=== PATIENT | female | born 1970 | race Caucasian/White ===

== ENCOUNTER 2020-04-20 08:27 | Emergency (ER) | payer SELFPAY ==
[~2020-04-20] VITALS: Ht 154.9 cm; Wt 90.7 kg
[~2020-04-20 08:27] MED LIST: CYCL10 PO; PRED20 PO; TRAM50 PO
[2020-04-20] MEDS ORDERED: Ultram50 MG PO (10:22)
[2020-04-20] MEDS ORDERED: LIDO700A20 TOP (10:22)
[2020-04-20] MEDS ORDERED: VOLTAREN ARTHRI20 GM TOP (10:22)
== END 2020-04-20 10:32 | disposition home or self-care (01) ==
LOC: ER 08:27
DX: G89.29 Other chronic pain (principal); M54.5 Low back pain; Z87.442 Personal history of urinary calculi
CPT/HCPCS: 96372; 99283-25; J1885

== ENCOUNTER 2022-03-06 12:37 | Day surgery (SDC) | payer OTHER ==
[~2022-03-06] VITALS: Ht 157.5 cm; Wt 85.1 kg
[~2022-03-06 12:37] MED LIST changes: +ATOR20 PO; +Amitriptyline H10 MG PO; +DULO30 PO; +LIDO700A20 TOP; +METF500; +Ultram50 MG PO; +VOLTAREN ARTHRI20 GM TOP
--- NOTE | 2022-03-06 14:11 | NUR ---
03/06/22 1411 Quin Castillo PT HAD 9 IV ATTEMPTS ON THE RIGHT FOREARM AND RIGHT HAND. PT TOLERATED THE IV ATTEMPTS WELL. PT STATED UNDERSTANDING AND WAS PLEASANT ABOUT THE IV ATTEMPTS.
--- NOTE | 2022-03-06 14:48 | NUR ---
03/06/22 1448 Vernell Recio MAX, SPIDER, WEDGE, FOAM HOUSEHOLD COORDINATOR, SIDE POSITIONERS, GELX3, SEAT BELT X2, RIGHT ARM SECURED IN GEL PADDED ARM MEYER. POSITION VERIFIED BY SURGON AND ANESTHESIA.
--- NOTE | 2022-03-06 16:02 | NUR ---
03/06/22 1602 Kerri Downing PT MOM AT CHAIR SIDE WITH PT.
== END 2022-03-06 16:31 | disposition home or self-care (01) ==
LOC: ORSCSDS 12:37
PROVIDERS: Orthopaedic Surgery
PROC: 0LS44ZZ Reposition Left Upper Arm Tendon, Percutaneous Endoscopic Approach (ICD-10-PCS; principal; 2022-03-06 14:30)
PROC: 0RNK4ZZ Release Left Shoulder Joint, Percutaneous Endoscopic Approach (ICD-10-PCS; principal; 2022-03-06 14:30)
PROC: 0LQ24ZZ Repair Left Shoulder Tendon, Percutaneous Endoscopic Approach (ICD-10-PCS; principal; 2022-03-06 14:30)
DX: M75.112 Incomplete rotator cuff tear or rupture of left shoulder, not specified as traumatic (principal); M75.22 Bicipital tendinitis, left shoulder; M75.42 Impingement syndrome of left shoulder; E11.9 Type 2 diabetes mellitus without complications; E78.5 Hyperlipidemia, unspecified; F41.8 Other specified anxiety disorders; Z79.84 Long term (current) use of oral hypoglycemic drugs; Z79.899 Other long term (current) drug therapy; E66.9 Obesity, unspecified; Z68.34 Body mass index [BMI] 34.0-34.9, adult
CPT/HCPCS: 82947; A9270; C1713; J0171; J1100; J2250; J2370; J2405; J2704; J3010; J7120

== ENCOUNTER → 2023-09-10 | Outpatient (CLI) | payer OTHER | LOC: LAB SHORT 19:24 → LAB 19:24 | DX: M35.3 Polymyalgia rheumatica (principal); L29.2 Pruritus vulvae | CPT/HCPCS: 85651; 86140 ==

== ENCOUNTER → 2023-09-17 | Outpatient (CLI) | payer OTHER ==
[2023-09-17 19:44] LABS: Bacterial Vaginosis PCR Negative (NEGATIVE); Candida Group, PCR NOT DETECTED (NOT DETECT)
[2023-09-17 19:45] LABS: Candida glabrata-krusei, PCR DETECTED (NOT DETECT)
== END | disposition home or self-care (01) ==
LOC: LAB SHORT 10:00
PROVIDERS: Family Medicine
DX: L29.2 Pruritus vulvae (principal)
CPT/HCPCS: 87481; 87661; 87801

== ENCOUNTER → 2024-05-13 | Outpatient (CLI) | payer OTHER ==
[2024-05-13 14:14] LABS: BASOPHILS ABSOLUTE AUTO 0.03 K/mm3 (0.00-0.23); BASOPHILS PERCENT AUTO 0 % (0-2); EOSINOPHILS ABSOLUTE AUTO 0.17 K/mm3 (0.00-0.68); EOSINOPHILS PERCENT AUTO 2 % (0-6); Hematocrit 44.4 % (33.0-51.0); Hemoglobin 15.2 g/dL (11.5-16.0); IMMATURE GRAN ABSOLUTE AUTO 0.02 K/mm3 (0.00-0.10); IMMATURE GRAN PERCENT AUTO 0 % (0-1); LYMPHOCYTES PERCENT AUTO 31 % (21-46); MONOCYTES ABSOLUTE AUTO 0.53 K/mm3 (0.16-1.47); MONOCYTES PERCENT AUTO 6 % (4-13); Mean Corpuscular HGB Conc 34.2 g/dL (31.5-36.5); Mean Corpuscular Volume 96 fL (80-100); Mean Platelet Volume 9.4 fL (9.1-12.4); NEUTROPHILS ABSOLUTE AUTO 4.92 K/mm3 (1.96-9.15); NEUTROPHILS PERCENT AUTO 60 % (41-73); Platelet Count 282 K/mm3 (150-400); RDW Coefficient Variation 12.5 % (11.7-14.2); Red Blood Cell Count 4.61 M/mm3 (3.80-5.20); White Blood Cell Count 8.27 K/mm3 (4.00-11.30)
[2024-05-13 14:17] LABS: Bun/Creatinine Ratio 15.9 (12.0-20.0); Calcium, Blood 9.1 mg/dL (8.5-10.1); Creatinine, Blood 0.63 mg/dL (0.40-1.00); Potassium, Blood 3.9 mmol/L (3.5-5.5)
== END ==
LOC: LAB 14:09 → LAB SHORT 14:09
PROVIDERS: Family Medicine
DX: R51.9 Headache, unspecified (principal)
CPT/HCPCS: 80048; 85025

== ENCOUNTER → 2025-06-19 | Outpatient (CLI) | payer OTHER | LOC: LAB SHORT 17:33 → LAB 17:33 | DX: E11.9 Type 2 diabetes mellitus without complications (principal) | CPT/HCPCS: 82043 ==

== ENCOUNTER 2025-06-26 14:00 | Emergency (ER) | payer OTHER ==
[~2025-06-26] VITALS: Ht 154.9 cm; Wt 77.1 kg
[2025-06-26] MEDS ORDERED: OZEMPIC1 MG/0.72 SQ (14:09)
[2025-06-26 14:28] LABS: BASOPHILS ABSOLUTE AUTO 0.04 K/mm3 (0.00-0.23); BASOPHILS PERCENT AUTO 0 % (0-2); EOSINOPHILS ABSOLUTE AUTO 0.11 K/mm3 (0.00-0.68); EOSINOPHILS PERCENT AUTO 1 % (0-6); Hematocrit 40.9 % (33.0-51.0); Hemoglobin 13.6 g/dL (11.5-16.0); IMMATURE GRAN ABSOLUTE AUTO 0.04 K/mm3 (0.00-0.10); IMMATURE GRAN PERCENT AUTO 0 % (0-1); LYMPHOCYTES ABSOLUTE AUTO 2.45 K/mm3 (0.84-5.20); LYMPHOCYTES PERCENT AUTO 25 % (21-46); MONOCYTES ABSOLUTE AUTO 0.86 K/mm3 (0.16-1.47); MONOCYTES PERCENT AUTO 9 % (4-13); Mean Corpuscular HGB Conc 33.3 g/dL (31.5-36.5); Mean Corpuscular Volume 97 fL (80-100); NEUTROPHILS ABSOLUTE AUTO 6.17 K/mm3 (1.96-9.15); NEUTROPHILS PERCENT AUTO 64 % (41-73); NRBC ABSOLUTE 0.00 K/mm3 (0.00-0.02); NRBC Auto 0.0 /100 WBC (0.0-0.2); Platelet Count 297 K/mm3 (150-400); RDW Coefficient Variation 12.3 % (11.7-14.2); RDW Standard Deviation 43.6 fL (35.1-46.3)
[2025-06-26 14:50] LABS: Alanine Aminotransfer (ALT/SGP 32.0 U/L (12-78); Albumin, Blood 3.8 g/dL (3.4-5.0); Albumin/Globulin Ratio 1.1 (0.8-1.8); Anion Gap 7.0 mmol/L (3-11); Aspartate Aminotrans (AST/SGOT 25.0 U/L (12-37); Bilirubin, Total 0.3 mg/dL (0.1-1.0); Blood Urea Nitrogen 14.0 mg/dL (8-24); CO2, Blood 27.0 mmol/L (21-32); Calcium, Blood 9.2 mg/dL (8.5-10.1); Chloride, Blood 108.0 mmol/L (98-108); Creatinine, Blood 0.52 mg/dL (0.40-1.00); Globulin, Blood 3.5 g/dL (2.2-4.0); Glucose, Blood 132.0 mg/dL (70-99); Potassium, Blood 4.0 mmol/L (3.5-5.5); Sodium, Blood 138.0 mmol/L (136-145); Total Protein, Blood 7.3 g/dL (6.4-8.2)
[2025-06-26] MEDS ORDERED: Ketorolac Tromethamine 15mg Vial IM ONE (17:00)
[2025-06-26 18:30] VITALS: BP 114/62
== END 2025-06-26 18:55 | disposition home or self-care (01) ==
LOC: ER 14:00
PROVIDERS: Student in an Organized Health Care Education/Training Program
DX: R07.9 Chest pain, unspecified (principal); Z88.1 Allergy status to other antibiotic agents; Z79.84 Long term (current) use of oral hypoglycemic drugs; Z79.899 Other long term (current) drug therapy; Z87.442 Personal history of urinary calculi
CPT/HCPCS: 71046; 80053; 84484; 85025; 85379; 93005; 93010; 96372; 99285-25; A9270; J1885